=== PATIENT | female | born 1955 | race Caucasian/White ===

== ENCOUNTER 2023-12-01 06:07 | Emergency (ER) | payer MEDICARE ==
[~2023-12-01] VITALS: Ht 167.6 cm; Wt 81.2 kg
[2023-12-01] MEDS ORDERED: ACETAMINOPHEN ES 500 MG TABLET ONE (07:49)
[2023-12-01] MEDS: ACETAMINOPHEN ES 500 MG TABLET PO ONE (07:55)
[2023-12-01] MEDS: IV NS 0.9% 500 ML BAG IV ONE (08:00)
[2023-12-01 08:28] LABS: BASOPHILS # (AUTO) 0.1 K/uL (0.0-0.2); BASOPHILS % (AUTO) 0.2 % (0.0-2.0); EOSINOPHILS % (AUTO) 0.1 % (0.0-6.0); HEMATOCRIT 43 % (33-45); HEMOGLOBIN 14.7 g/dL (11.5-14.8); LYMPHOCYTES # (AUTO) 0.9 K/uL (0.8-4.8); LYMPHOCYTES % (AUTO) 3.4 % (20.0-44.0); MEAN CORPUSCULAR HEMOGLOBIN 34 PG (26.0-33.0); MEAN CORPUSCULAR HGB CONC 34 g/dl (31.0-36.0); MEAN CORPUSCULAR VOLUME 100 fL (82-100); MONOCYTES # (AUTO) 1.5 K/uL (0.1-1.30); MONOCYTES % (AUTO) 5.4 % (2.0-12.0); NEUTROPHILS # (AUTO) 24.7 K/uL (1.8-8.9); NEUTROPHILS % (AUTO) 90.9 % (43.0-81.0); PLATELET COUNT (AUTO) 294 K/uL (150-450); RED BLOOD CELL COUNT(AUTO) 4.35 MIL/uL (4.0-5.2); RED CELL DISTRIBUTION WIDTH 13.3 % (11.5-15.0); WHITE BLOOD COUNT (AUTO) 27.2 K/uL (4.3-11.0)
[2023-12-01] MEDS: PIPERACILLIN /TAZOBACTAM 3.375 G in IV D5W 50 ML IV ONE (08:30)
[2023-12-01 09:45] LABS: INR 1.02 (0.91-1.10); PARTIAL THROMBOPLASTIN TIME 25.9 SEC (24.3-34.3); PROTHROMBIN TIME 10.8 SECS (9.2-11.1)
[2023-12-01 09:58] LABS: ALANINE AMINOTRANSFERASE 15 U/L (12-78); ALBUMIN 3.4 g/dL (3.4-5.0); ALKALINE PHOSPHATASE 99 U/L (46-116); ASPARTATE AMINOTRANSFERASE 9 U/L (15-37); BILIRUBIN,DIRECT 0.1 mg/dL (0.0-0.2); BILIRUBIN,TOTAL 0.5 mg/dL (0.2-1.0); CALCIUM, SERUM 9.4 mg/dL (8.5-10.1); CARBON DIOXIDE 23 mmol/L (21-32); CHLORIDE 110 mmol/L (98-107); CREATININE 0.8 mg/dL (0.6-1.3); GLUCOSE 174 mg/dL (74-106); SODIUM SERUM 142 mmol/L (136-145); TOTAL PROTEIN, SERUM 6.8 g/dL (6.4-8.2); UREA NITROGEN, BLOOD 14 mg/dL (7-18)
[2023-12-01 10:00] LABS: LACTIC ACID 1.9 mmol/L (0.4-2.0)
[2023-12-01] MEDS ORDERED: AMOX-430 PO (10:31)
[2023-12-01] MEDS ORDERED: DOXY100C2 PO (10:31)
[2023-12-01] MEDS ORDERED: BENZ-13 PO (10:31)
[2023-12-01 11:12] VITALS: BP 131/70; TEMP 99.1; O2SAT 95
== END 2023-12-01 11:13 | disposition home or self-care (01) ==
LOC: ER 06:21
DX: J18.9 Pneumonia, unspecified organism (principal); R09.81 Nasal congestion; R06.02 Shortness of breath; R05.9 Cough, unspecified; D72.829 Elevated white blood cell count, unspecified; R50.9 Fever, unspecified; R53.1 Weakness; I10 Essential (primary) hypertension; E78.5 Hyperlipidemia, unspecified; Z87.19 Personal history of other diseases of the digestive system; Z88.6 Allergy status to analgesic agent; Z60.2 Problems related to living alone; Z20.822 Contact with and (suspected) exposure to COVID-19
CPT/HCPCS: 99285; 96365; 71045; 87426; 93005; 84145; 85025; 80048; 87040; 83605; 80076; 36415; 84484; 85730; J2543; J7060; J7040; A4223